=== PATIENT | male | born 1955 | race Caucasian/White ===

== ENCOUNTER → 2017-05-10 | Outpatient (CLI) | payer BC ==
[~2017-05-10] MED LIST: ASPI81TA28 PO; CHOL2000 PO; CLOB-65 TOP; FLV1 PO; KETO2CRE14 TOP; LEVO-14 PO; MCRHC/8025 PO; METF1000 PO; METH2.5T PO; MULT-188 PO; MULT-506 PO; PRLSR20 PO; ROSU20TA PO; VERA120T65 PO
== END | disposition home or self-care (01) ==
LOC: C.RDSM 10:23
PROVIDERS: ATTEND Physical Medicine & Rehabilitation Sports Medicine
DX: Z96.642 Presence of left artificial hip joint (principal)

== ENCOUNTER 2021-02-05 05:17 | Observation (INO) ==
--- NOTE | 2021-01-17 10:56 | PAT Medication Instructions ---
Medication Instructions Date of Service January 17, 2021 Home Medications acetaminophen [Tylenol Extra Strength] 1,000 mg PO BID aspirin [Aspir-81] 81 mg PO QAM bupropion HCl [Wellbutrin SR] 300 mg PO QAM cholecalciferol (vitamin D3) [Vitamin D3] 50 mcg PO QPM coQ10 (ubiquinol) 200 mg PO QAM cyclobenzaprine [Flexeril] 10 mg PO TID PRN folic acid 0.8 mg PO QAM qyrvuzov-pkgsb-ssnlz-CF borate [[facility]] 1 tab PO HS insulin glargine-lixisenatide [Soliqua 100/33] 38 unit SUBCUT QPM levocetirizine [Xyzal] 5 mg PO HS metformin 1,000 mg PO BID methotrexate sodium 2.5 mg PO USEASDIRECTD naproxen 500 mg PO BID omega 9-qye-mjk-fish oil [Fish Oil] 1 cap PO HS rosuvastatin [Crestor] 20 mg PO HS telmisartan-hydrochlorothiazid 1 tab PO QAM verapamil 120 mg PO HS ASK your surgeon for instructions naproxen 500 mg PO BID ASK your prescriber and surgeon methotrexate sodium 2.5 mg PO USEASDIRECTD STOP taking 2 weeks before surgery (or as soon as possible if surgery is within 2 weeks) coQ10 (ubiquinol) 200 mg PO QAM ktlziqsh-pegld-cpeyf-CF borate [[facility]] 1 tab PO HS omega 9-pcn-upx-fish oil [Fish Oil] 1 cap PO HS DO NOT take the morning of surgery cyclobenzaprine [Flexeril] 10 mg PO TID PRN folic acid 0.8 mg PO QAM metformin 1,000 mg PO BID telmisartan-hydrochlorothiazid 1 tab PO QAM Take morning of surgery With a small sip of water, OTHERWISE NOTHING TO EAT OR DRINK AFTER MIDNIGHT: acetaminophen [Tylenol Extra Strength] 1,000 mg PO BID (okay to take up to 4 hours prior to surgery if needed) aspirin [Aspir-81] 81 mg PO QAM (continue as normal unless told otherwise by surgeon) bupropion HCl [Wellbutrin SR] 300 mg PO QAM Take evening before surgery acetaminophen [Tylenol Extra Strength] 1,000 mg PO BID cholecalciferol (vitamin D3) [Vitamin D3] 50 mcg PO QPM cyclobenzaprine [Flexeril] 10 mg PO TID PRN (if needed) insulin glargine-lixisenatide [Soliqua 100/33] 38 unit SUBCUT QPM levocetirizine [Xyzal] 5 mg PO HS metformin 1,000 mg PO BID rosuvastatin [Crestor] 20 mg PO HS verapamil 120 mg PO HS Other Notes If you have any questions please call us at [phone] or [phone] or [phone] or [phone]
--- NOTE | 2021-01-22 12:25 | Anesthesiology Consultation ---
Date of Service January 22, 2021 Assessment & Plan (1) Encounter for pre-operative examination: - COVID screening: Per assessment on 01/22: Travel screen negative, no known COVID-19 positive contacts or current COVID-19 related symptoms. Patient vaccinated. Surgeon arranging preop COVID testing. Awaiting results. - Check BSG AM DOS - Possible difficult intubation (d/t anatomy) - S/P Left KI (06/19/15): SAB at L3/L4 (x1 attempt) at [facility] (wt at time 102kg) Chart Review Chart Review: Acceptable Risk for Surgery (pending surgeon-ordered PCP clearance) and Patient seen in Pre Admission Testing Teaching & Discussion Pre-Anesthesia Teaching/Discussion Notes: Instructed NPO after midnight before surgery,except medications with 15 cc of water. Medication instructions provided according to the PAT guidelines. History Surgery Operation Date: 02/05/21 09:20 Proposed Procedures p Right Total Hip Arthroplasty - Shane Tinajero MD Height/Weight Height: 5 ft 1 in Weight: 94.7 kg Allergies Allergy/AdvReac Type Severity Reaction Status Date / Time atorvastatin AdvReac Mild Myalgias Verified 01/22/21 12:23 simvastatin AdvReac Mild Myalgias Verified 01/22/21 12:23 Dust AdvReac Mild Congestion, Uncoded 01/22/21 12:23 itchy eyes Medications Home Medications Medication Instructions Recorded Confirmed Last Taken acetaminophen [Tylenol Extra 1,000 mg PO BID 01/16/21 01/16/21 Unknown Strength] aspirin [Aspir-81] 81 mg PO QAM 01/16/21 01/16/21 Unknown bupropion HCl [Wellbutrin SR] 300 mg PO QAM 01/16/21 01/16/21 Unknown cholecalciferol (vitamin D3) 50 mcg PO QPM 01/16/21 01/16/21 Unknown [Vitamin D3] coQ10 (ubiquinol) 200 mg PO QAM 01/16/21 01/16/21 Unknown cyclobenzaprine [Flexeril] 10 mg PO TID PRN 01/16/21 01/16/21 Unknown folic acid 0.8 mg PO QAM 01/16/21 01/16/21 Unknown theksaru-udebz-xtfou-CF borate 1 tab PO HS 01/16/21 01/16/21 Unknown [[facility]] insulin glargine-lixisenatide 38 unit SUBCUT QPM 01/16/21 01/16/21 Unknown [Soliqua 100/33] levocetirizine [Xyzal] 5 mg PO HS 01/16/21 01/16/21 Unknown metformin 1,000 mg PO BID 01/16/21 01/16/21 Unknown methotrexate sodium 2.5 mg PO USEASDIRECTD 01/16/21 01/16/21 Unknown naproxen 500 mg PO BID 01/16/21 01/16/21 Unknown omega 9-ddd-gfr-fish oil [Fish Oil] 1 cap PO HS 01/16/21 01/16/21 Unknown rosuvastatin [Crestor] 20 mg PO HS 01/16/21 01/16/21 Unknown telmisartan-hydrochlorothiazid 1 tab PO QAM 01/16/21 01/16/21 Unknown verapamil 120 mg PO HS 01/16/21 01/16/21 Unknown Past Medical History Medical History Depression Diabetes mellitus, type 2 IDDM Hypertension Low testosterone Obesity Osteoarthritis Psoriasis Rheumatoid arthritis Hands, shoulder, legs Sleep apnea CPAP Exercise / Class Metabolic Activity III < 4 Walking/Shop/Light housework (walker/cane) Past Family History Family History Other Cancer Hypertension No family history of adverse response to anesthesia Obesity Osteoarthritis Past Surgical History Surgical History History of cataract surgery R/L History of total left hip arthroplasty Left KI (06/19/15): SAB at L3/L4 (x1 attempt) at [facility] (wt at time 102kg) Hx of LASIK [place] teeth removed Past Anesthesia History No Hx of Anesthesia Complications and No Family Hx of Anesthesia Complications History of PONV No Hx of PONV and No Hx of Motion Sickness Social History Smoking Status: Never smoker Do You Dip or Chew Tobacco: No Hx Alcohol Use: No Hx Substance Use: No substance use type: does not use Review of Systems Patient denies chest pain, shortness of breath, reflux, cough, wheezing, palpitations. Physical Exam Vital Signs VITALS BP 162/76 P 82 TEMP 98.2 SP02 98%RA RESP 18 PHYSICAL Full cervical extension range of motion. No cervicalgia with cervical extension limitations. Full TMJ range of motion. TMD 3.5 finger breaths Mallampati Score 4 (small oral opening) Dentition: intact, implants (sides) Lungs: clear throughout to auscultation Cardiac: regular rate and rhythm, no murmurs noted Spine: normal Carotid arteries: negative bruit Extremities: no edema Short, thick neck Lab Results Anesthesia Preop Results Results Anesthesia Widget: WBC 10.91 K/uL (4.8-10.8) H 01/22/21 Hgb 12.4 g/dL (14.0-18.0) L 01/22/21 Hct 37.4 % (42-52) L 01/22/21 Plt 369 K/uL (130-400) 01/22/21 Na 136 mmol/L (136-145) 01/22/21 K 4.4 mmol/L (3.5-5.1) 01/22/21 Cl 103 mmol/L (98-107) 01/22/21 CO2 28 mmol/L (21-32) 01/22/21 BUN 22 mg/dl (7-18) H 01/22/21 Creat 1.14 mg/dl (0.6-1.4) 01/22/21 Glucose Level 93 mg/dl (70-99) 01/22/21 PT 10.3 Seconds (9.0-12.0) 01/22/21 PTT 25.9 Seconds (21.0-31.0) 01/22/21 INR 1.0 (0.9-1.1) 01/22/21 HA1c 7.1 % (4.5-5.6) H 01/22/21 Blood Type O Positive 01/22/21 Antibody Screen NEGATIVE 01/22/21 Lab Comments: Mildly elevated WBC > report to be forwarded to PCP for continuity of care Testing Electrocardiogram Date: 01/22/21 NSR at 83bpm. Chest X-Ray Date: 01/22/21 Findings: + NAD
[2021-02-05] MEDS ORDERED: ROPIVACAINE 0.5% HCL/PF 150 MG, BUPIVACAINE 0.75% MPF 20 ML, EPINEPHrine 0.15 MG, Ketor... INFIL SCH (06:00)
[2021-02-05] MEDS ORDERED: LR 60ML/HR IV SCH (06:00)
[2021-02-05] MEDS ORDERED: LR 500ML BOLUS, THEN 15ML/HR IV SCH (06:00)
[2021-02-05] MEDS ORDERED: ceFAZolin 2000MG 2,000 MG/15 ML SYR IV SCH (06:00)
[2021-02-05] MEDS ORDERED: TRANEXAMIC ACID 1,000 MG **IV Pre-op IV SCH (06:00)
[2021-02-05] MEDS ORDERED: BUPIVACAINE 0.5 % 5 MG/1 ML PF 10ML VIAL ONE (06:14)
--- NOTE | 2021-02-05 06:32 | History & Physical Bridge Note ---
Date of Service February 05, 2021 History & Physical Bridge Note I have examined the patient, reviewed the History & Physical and in the interval since the performance of the History & Physical I have noted the following changes of clinical significance:consent obtained/site verified/covid screen negative. no changes noted
[2021-02-05] MEDS ORDERED: ORTHO JOINT ANESTHETIC ONE (06:35)
[2021-02-05] MEDS ORDERED: fentaNYL citrate 100 MCG/2 ML VIAL ONE (06:38)
[2021-02-05] MEDS ORDERED: MIDAZOLAM HCL 1 MG/ML 2ML VIAL ONE (06:39)
[2021-02-05] MEDS ORDERED: fentaNYL citrate 100 MCG/2 ML VIAL IV PRN (06:57)
[2021-02-05] MEDS ORDERED: ePHEDrine sulfate 50 MG/ML AMP IV PRN (06:57)
[2021-02-05] MEDS ORDERED: ATROPINE SULFATE 0.1 MG/ML 10ML SYR IV PRN (06:57)
[2021-02-05] MEDS ORDERED: ePHEDrine sulfate 50 MG/ML AMP ONE ×3 (07:34→09:54)
[2021-02-05] MEDS ORDERED: PROPOFOL IV EMULSION 10 MG/ML 20 ML VIAL IV ONE ×2 (07:34→08:11)
[2021-02-05] MEDS ORDERED: ePHEDrine sulfate 50 MG/ML SYR ONE (07:34)
--- NOTE | 2021-02-05 08:33 | Post Operative Brief Note ---
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
--- NOTE | 2021-02-05 08:45 | Operative Report ---
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 He had tried conservative care measures without improvement. He has a history of previous left total hip arthroplasty and has done well with it. He elects to proceed with the same on the right. Preoperative imaging was obtained. Description of Procedure The patient was administered a spinal anesthetic and then taken to the operating room where he was given sedation. He was prepped and draped in the usual sterile fashion. Please see Dr. Tinajero's operative report for specifics of the procedure. I was present for the entire case from initial patient positioning through final wound closure. Assistance was provided in tissue retraction, hemostasis, trial implant placement, final implant placement, and final wound closure. Patient was taken to the recovery room in satisfactory condition. I attest to the content of the Intraoperative Record and any orders documented therein. Any exceptions are noted below.
[2021-02-05] MEDS ORDERED: VANCOMYCIN HCL 1,500 MG in SODIUM CHLORIDE 0.9% 500 ML IV ONE (09:15)
--- NOTE | 2021-02-05 09:16 | XRay Report ---
XR pelvis 1-2V routine CLINICAL HISTORY: Postop right total hip replacement COMPARISON: 01/10/2021 DISCUSSION: A total left hip arthroplasty is again visualized. There is now evidence for a total righ t hip arthroplasty. The femoral and acetabular components appear well seated. There is no dislocation . There is gas within soft tissues consistent with recent surgery. There are overlying skin geronimo. IMPRESSION: Postsurgical changes of a total right hip arthroplasty. ACT 112: Negative or not required by law. Electronically signed by: Timo Talavera M.D. 02/05/2021 9:15 AM
--- NOTE | 2021-02-05 09:43 | Progress Notes ---
DATE OF SERVICE: 02/05/2021 Status post right total hip replacement. The patient is resting comfortably in PACU. Denies any [address] pain, shortness of breath, fever, chills, nausea, vomiting or headache. Spinal block is still in place. Wound dressing clean, dry and intact. Leg lengths are equal. SCDs applied. X-ray is pendin g. ASSESSMENT: Overall doing well. Continue with postoperative care pathway. X-ray is pending. Contin ue to mobilize. Job ID: [id number]
[2021-02-05] MEDS ORDERED: PHENYLEPHRINE HCL 10 MG/ML VIAL ONE (09:49)
--- NOTE | 2021-02-05 10:02 | Operative Report (OR) ---
DATE OF PROCEDURE: 02/05/2021 SURGEON: Shane Tinajero MD. SILO WORKER: Samuel Mcclendon PA-C. No resident or fellow available. 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 OPERATION PERFORMED: Noncemented right total hip replacement. PERIOPERATIVE SITUATION: Medically cleared male with intractable hip pain, has superior migration, marked degeneration and destruction of his femoral head. This will be sent for pathology. A similar process on the opposite side, idiopathic AVN. Options were discussed in detail. Wished to proceed with surgical treatment like he had on the other side. Understands the risks and consequences, particularly nerve injury with lengthening of his leg. DESCRIPTION OF PROCEDURE: After the patient was appropriately identified, site verified, consent verified, antibiotics were confirmed as being given, the right lower extremity was prepped and draped in the usual routine fashion with the patient in the left lateral decubitus position. A posterior approach to the hip was made. Sharp dissection carried through the skin, blunt dissection down to the fascia. IT band and gluteus reuben fascia were then split and a Charnley retractor was placed. Care was taken to protect the sciatic nerve. The short external rotators were identified and released. The capsule was T'ed and the hip was then dislocated. There was marked deformity, superior migration of the femur. Once this was resected, retractors were placed. Capsule released further, lot of debris removed from the acetabulum. Serial reaming carried up to 52 and a 52 cup impacted into appropriate anteversion and inclination with excellent fixation. An additional screw was placed 6.5 x 30 with excellent purchase. A trial liner was then seated. Minor osteophytes resected. Femur was then flexed and internally rotated and prepared with a box car washer, canal finder, lateralizing rasp and serial broaching up to a size 2. Size 2 was then impacted into position and a 1.5 or 5.0 head was appropriate. Hip was very stable. The trial elements were then removed. All the wound was then irrigated. The hole eliminator seated, the permanent liner seated, the permanent head and stem seated, and then the +5 head seated and then the hip was reduced. It was stable in all planes. It was then copiously irrigated and then closed using #2 Vicryl, 2-0 Vicryl and stainless steel clips. Orthomix was injected in the superficial wound. EBL was roughly 150 mL. Crystalloid per Anesthesia. SUMMARY OF IMPLANTS: Size 52 acetabular shell sector cup hole eliminator, 30 x 6.5 screws, 36 x 52 neutral liner, 2 high-offset Tri-Lock and 36+1.5 ceramic head. The patient's leg lengths were equal. Hip was stable. Job ID: [id number] [facility]
--- NOTE | 2021-02-05 10:03 | Discharge Summary (DS) ---
DATE OF POTENTIAL DISCHARGE: 02/06/2021. CHIEF COMPLAINT: Right hip pain. Elective right total hip replacement for severe AVN collapse and D MALINI. Hospital course to date has been uneventful. HISTORY OF PRESENT ILLNESS: Severe pain, marked destruction of his hip. PAST MEDICAL HISTORY: Remarkable for anxiety, diabetes, hypertension, low testosterone, obesity, ost eoarthritis, psoriasis, rheumatoid arthritis, sleep apnea, CPAP use, cataract surgery, left hip repla cement, wisdom teeth. FAMILY HISTORY: Remarkable for cancer, hypertension, obesity, osteoarthritis. SOCIAL HISTORY: He is , spouse lives with him. He is employed. He does not smoke or drink. REVIEW OF SYSTEMS: Noncontributory. ASSESSMENT: Doing well status post right total hip replacement. PLAN: For discharge tomorrow. Case management to see ABBEY, prepare for discharge. Job ID: [id number]
--- NOTE | 2021-02-05 10:39 | Anesthesiology Progress Note ---
Date of Service February 05, 2021 Anesthesia Post Procedure Vital Signs Vital Signs: Temp Pulse Pulse Resp BP Pulse Ox 02/05/21 10:15 75 18 134/58 L 97 02/05/21 10:00 36.2 C L 78 18 137/60 96 02/05/21 09:50 76 16 117/67 97 02/05/21 09:40 75 18 120/65 98 02/05/21 09:30 72 12 127/57 L 99 02/05/21 09:20 76 12 129/60 98 02/05/21 09:10 71 14 120/61 100 02/05/21 09:00 79 18 116/58 L 100 02/05/21 08:50 89 14 115/61 100 02/05/21 08:42 36.2 C L 77 16 113/54 L 99 02/05/21 05:48 36.9 C 88 20 185/69 H 98 Pain Intensity Right Hip: Pain Intensity: 0 Transfer of Care Handoff Completed per policy Notes Mental Status: alert / awake / arousable and participated in evaluation Patient Amnestic to Procedure: Yes Nausea / Vomiting: adequately controlled Pain: adequately controlled Airway Patency, RR, SpO2: stable & adequate BP & HR: stable & adequate Hydration State: stable & adequate Neuraxial Anesthesia: was administered and sensory block is resolving Anesthetic Complications: no major complications apparent
[2021-02-05] MEDS ORDERED: TAMSULOSIN HCL 0.4 MG CAP PO PRN (10:51)
[2021-02-05] MEDS ORDERED: MAGNESIUM HYDROXIDE SUSP 30 ML UDC PO PRN (10:51)
[2021-02-05] MEDS ORDERED: HYDROmorphone INJ 0.5 MG/0.5 ML SYR IV PRN (10:51)
[2021-02-05] MEDS ORDERED: ALUMINUM/MAGNESIUM SUSP 30 ML UDC PO PRN (10:51)
[2021-02-05] MEDS ORDERED: diphenhydrAMINE 50 MG/ML VIAL IV PRN (10:51)
[2021-02-05] MEDS ORDERED: SODIUM CHLORIDE 0.9% 1000ML 1,000 ML IV SCH (10:51)
[2021-02-05] MEDS ORDERED: bisacodyL 10 MG SUPP PR PRN (10:51)
[2021-02-05] MEDS ORDERED: TELMISARTAN HYDROCHLOROTHIAZID PO SCH (10:51)
[2021-02-05] MEDS ORDERED: NALOXONE HCL 0.4 MG/1 ML VIAL/CARP IV PRN (10:51)
[2021-02-05] MEDS ORDERED: METOCLOPRAMIDE HCL INJ 5 MG/ML 2 ML VIAL IV PRN (10:51)
[2021-02-05] MEDS ORDERED: CYCLOBENZAPRINE HCL 10 MG TAB PO PRN (11:12)
[2021-02-05] MEDS ORDERED: hydroCHLOROthiazide 25 MG TAB PO ONE (11:30)
[2021-02-05] MEDS ORDERED: TELMISARTAN 40 MG TAB PO ONE (11:30)
[2021-02-05] MEDS: buPROPion SR 150 MG TABCR PO SCH (12:20)
[2021-02-05] MEDS: ASPIRIN 81 MG ECTAB PO SCH (12:20)
[2021-02-05] MEDS: DOCUSATE SODIUM 100 MG CAP PO SCH ×2 (12:20→21:26)
[2021-02-05] MEDS: ORTHO WARFARIN NOMOGRAM SCH (12:41)
[2021-02-05] MEDS: INSULIN ASPART 100 UNITS/ML 3 ML PEN SC SCH ×3 (12:44→21:29)
[2021-02-05] MEDS: ceFAZolin 2000MG 2,000 MG/15 ML SYR IV SCH ×2 (12:45→21:28)
[2021-02-05] MEDS: ACETAMINOPHEN 500 MG TAB PO SCH ×2 (12:45→21:36)
[2021-02-05] MEDS: oxyCODONE HCL IR 5 MG TAB (IMMEDIATE RELEASE) PO PRN ×2 (14:58→21:27)
[2021-02-05] MEDS ORDERED: TRANEXAMIC ACID / 0.7% NACL 1,000 MG/100 ML BAG IV SCH (15:00)
[2021-02-05] MEDS: ASCORBIC ACID 500 MG TAB PO SCH (15:28)
[2021-02-05] MEDS: FERROUS GLUCONATE 324 MG TAB PO SCH (15:29)
[2021-02-05] MEDS ORDERED: WARFARIN SOD 5 MG TAB PO SCH (16:00)
[2021-02-05] MEDS: VERAPAMIL HCL 120 MG TABCR PO SCH (16:48)
[2021-02-05] MEDS: ROSUVASTATIN CALCIUM 20 MG TAB PO SCH (21:26)
[2021-02-05] MEDS: CETIRIZINE HCL 10 MG TABLET PO SCH (21:26)
[2021-02-05] MEDS: SENNA 8.6 MG TAB PO SCH (21:26)
[2021-02-06] MEDS: ONDANSETRON INJ 2 MG/ML 2 ML VIAL IV PRN ×2 (05:25→11:35)
[2021-02-06 06:36] LABS: Basophils # (auto) 0.01 K/uL (0-0.2); Basophils % (auto) 0.1 %; Eosinophils # (auto) 0.01 K/uL (0-0.5); Eosinophils % (auto) 0.1 %; Hematocrit (blood only) 31.8 % (42-52); Hemoglobin 10.9 g/dL (14.0-18.0); Immature Granulocytes # (auto) 0.05 K/uL (0.00-0.02); Immature Granulocytes % (auto) 0.3 %; Lymphocytes # (auto) 0.82 K/uL (1.2-3.4); Lymphocytes % (auto) 5.7 %; Mean Corpuscular Hemoglobin 31.6 pg (25-34); Mean Corpuscular Hgb Conc 34.3 g/dL (32-36); Mean Corpuscular Volume 92.2 fL (80-100); Mean Platelet Volume 10.5 fL (7.4-10.4); Monocytes # (auto) 1.21 K/uL (0.11-0.59); Monocytes % (auto) 8.4 %; Neutrophils # (auto) 12.27 K/uL (1.4-6.5); Neutrophils % (auto) 85.4 %; Platelet Count 302 K/uL (130-400); RDW Coefficient of Variation 13.1 % (11.5-14.5); RDW Standard Deviation 43.4 fL (36.4-46.3); Red Blood Count 3.45 M/uL (4.7-6.1); White Blood Count 14.37 K/uL (4.8-10.8)
[2021-02-06 07:10] LABS: BUN Creatinine Ratio 16.8 (10-20); Calcium 8.9 mg/dl (8.5-10.1); Creatinine Clr Calc Pharmacy 73.8 ml/min; Est GFR (African American) 94.1 ml/min; Est GFR (Non-African American) 81.2 ml/min; INR 1.1 (0.9-1.1); Potassium 4.3 mmol/L (3.5-5.1); Prothrombin Time 10.9 Seconds (9.0-12.0)
--- NOTE | 2021-02-06 07:22 | Progress Notes ---
DATE: 02/05/2021. SUBJECTIVE: Postop check status post right total hip replacement. The patient had a little episode of vasovagal reaction. He is feeling better now. He denies any [address] pain, shortness of breath, fever, chills, nausea, vomiting, or headache. OBJECTIVE: Vital signs are stable. He is afebrile. Physical exam reveals neurologic findings intact. Has no abdominal pain, has no calf pain. Has good hip rotation. Femoral sciatic nerve working well bilaterally. LABORATORY DATA: Hematocrit stable at 31.8. Electrolytes are pending. Glucose is in the 180 range. INR is pending. ASSESSMENT AND PLAN: Doing reasonably well. Glucoses are not out of control. His hematocrit is sta ble. His main issue was some syncope/vasovagal reaction getting out of the bathroom. This is likely based on some autonomic dysfunction based on his diabetes. Needs to be careful with pain medication and moving quickly. He states he was sitting up in bed for about 3-4 hours yesterday, feels like th at may have contributed to it. At this point in time, we will see how he does with PT, OT before henrry ing him be discharged. A conditional discharge order has been written. Job ID: [id number]
[2021-02-06] MEDS: ACETAMINOPHEN 500 MG TAB PO SCH ×3 (07:52→21:35)
[2021-02-06] MEDS: DOCUSATE SODIUM 100 MG CAP PO SCH ×2 (07:53→21:20)
[2021-02-06] MEDS: ASCORBIC ACID 500 MG TAB PO SCH ×2 (07:53→16:34)
[2021-02-06] MEDS: buPROPion SR 150 MG TABCR PO SCH (07:53)
[2021-02-06] MEDS: FOLIC ACID 400 MCG TAB PO SCH (07:53)
[2021-02-06] MEDS: ASPIRIN 81 MG ECTAB PO SCH (07:54)
[2021-02-06] MEDS: TELMISARTAN 40 MG TAB PO SCH (07:54)
[2021-02-06] MEDS: hydroCHLOROthiazide 25 MG TAB PO SCH (07:54)
[2021-02-06] MEDS: FERROUS GLUCONATE 324 MG TAB PO SCH ×2 (07:54→16:35)
[2021-02-06] MEDS: MULTIVITAMIN TAB PO SCH (07:54)
[2021-02-06] MEDS: INSULIN ASPART 100 UNITS/ML 3 ML PEN SC SCH ×4 (08:54→21:16)
[2021-02-06] MEDS: ORTHO WARFARIN NOMOGRAM SCH (15:12)
[2021-02-06] MEDS ORDERED: WARFARIN SOD 5 MG TAB PO ONE (16:00)
[2021-02-06] MEDS ORDERED: KETOROLAC TROMETHAMINE 15 MG/ML VIAL IV ONE (16:11)
--- NOTE | 2021-02-06 16:31 | Progress Notes ---
SUBJECTIVE: Patient seen this afternoon. Still a little bit unsteady and a sense of feeling uncomfortable about going home. Denies any chest pain, shortness of breath, fever, chills, nausea, vomiting or headache. He has some groin pain which is not unexpected based on his collapse of his femoral head and the osteophytes that needed to be resected. He is a bit hypertensive. OBJECTIVE: VITAL SIGNS: He is afebrile. His O2 sat is 99 on room air. He states he feels better this afternoon. CHEST: Clear. ABDOMEN: Soft, nontender. Pulses regular, but slightly tachycardic. Neurovascular check femoral sciatic nerve is normal. Wound dressing clean, dry and intact. Hips are located. ASSESSMENT: Not quite ready to go home yet. PLAN: We will keep him over night. We will cancel his discharge order. We will give him a little bit of atenolol 25 mg p.o. x1 now to help assist his tachycardia and his hypertension. We will give him verapamil later on. We will also give him a dose of IV Toradol 15 mg x1 verified with the pharmacist. We will potentially discharge tomorrow morning after PT/OT. Job ID: [id number] [facility] INSANEKimberly
[2021-02-06] MEDS: ATENOLOL 25 MG TABLET PO SCH (17:03)
[2021-02-06] MEDS: oxyCODONE HCL IR 5 MG TAB (IMMEDIATE RELEASE) PO PRN (18:34)
[2021-02-06] MEDS: CETIRIZINE HCL 10 MG TABLET PO SCH (21:17)
[2021-02-06] MEDS: ROSUVASTATIN CALCIUM 20 MG TAB PO SCH (21:35)
[2021-02-06] MEDS: SENNA 8.6 MG TAB PO SCH (21:35)
[2021-02-06] MEDS: VERAPAMIL HCL 120 MG TABCR PO SCH (21:35)
[2021-02-07] MEDS: ACETAMINOPHEN 500 MG TAB PO SCH (05:30)
[2021-02-07] MEDS: oxyCODONE HCL IR 5 MG TAB (IMMEDIATE RELEASE) PO PRN (05:38)
[2021-02-07] MEDS ORDERED: AZITHROMYCIN 250 MG TAB PO ONE (06:19)
--- NOTE | 2021-02-07 07:04 | Progress Notes ---
SUBJECTIVE: Postop day #2 status post right total hip replacement on Thang Michel. He is sitting up in his chair. He feels much better. He feels like he can be discharged. His blood pressure is much better controlled, the atenolol really helped. I have asked him to discuss that with his primary care provider. His pulse is in the 70s. He denies chest pain, shortness of breath, fever, chills, nausea, vomiting or headache. OBJECTIVE: Vital signs are stable. His pulse is regular. His abdomen is soft, nontender. His calves are nontender. Wound dressing clean, dry and intact. PT/INR is pending this morning. ASSESSMENT AND PLAN: Discharged to home today. Due to methotrexate, we will place him on azithromycin 500 mg daily for 5 days. Started that this morning. Coumadin dose per nomogram today. Discharge after PT, OT today. Follow up in 2 weeks. Job ID: [id number] [facility]
[2021-02-07] MEDS: ASCORBIC ACID 500 MG TAB PO SCH (07:32)
[2021-02-07] MEDS: MULTIVITAMIN TAB PO SCH (07:32)
[2021-02-07] MEDS: FERROUS GLUCONATE 324 MG TAB PO SCH (07:32)
[2021-02-07] MEDS: TELMISARTAN 40 MG TAB PO SCH (07:32)
[2021-02-07] MEDS: ASPIRIN 81 MG ECTAB PO SCH (07:33)
[2021-02-07] MEDS: buPROPion SR 150 MG TABCR PO SCH (07:33)
[2021-02-07] MEDS: ATENOLOL 25 MG TABLET PO SCH (07:33)
[2021-02-07] MEDS: FOLIC ACID 400 MCG TAB PO SCH (07:34)
[2021-02-07] MEDS: hydroCHLOROthiazide 25 MG TAB PO SCH (07:34)
[2021-02-07] MEDS: DOCUSATE SODIUM 100 MG CAP PO SCH (07:34)
[2021-02-07] MEDS: INSULIN ASPART 100 UNITS/ML 3 ML PEN SC SCH (07:51)
[2021-02-07] MEDS ORDERED: metHOTREXate sodium 2.5 MG TAB PO SCH (09:00)
--- NOTE | 2021-02-07 09:06 | Electrocardiogram Report ---
Test Reason : Blood Pressure : / mmHG Vent. Rate : 098 BPM Atrial Rate : 098 BPM P-R Int : 160 ms QRS Dur : 090 ms QT Int : 328 ms P-R-T Axes : 075 044 064 degrees QTc Int : 418 ms Normal sinus rhythm Normal ECG When compared with ECG of 22-JAN-2021 12:54, No significant change was found Confirmed by Konstantin Harvey ([id number]) on 02/07/2021 9:06:11 AM Referred By: Shane Tinajero Confirmed By:Konstantin Harvey
--- NOTE | 2021-02-07 09:59 | Discharge Summary (DS) ---
ADDENDUM DATE OF ADMISSION: 02/05/2021 DATE OF DISCHARGE: 02/07/2021 The patient will be discharged today, 02/07/2021. His blood pressure is better controlled. He feels better. His pain is well managed. He is voiding, eating and drinking. He has some autonomic dysfu nction likely based on his diabetes, which would give him a little bit of vasovagal reaction with act ivity, but he is doing much better now. At this point in time, we will discharge him home today. I added azithromycin 500 mg daily for 5 days based on his methotrexate use. This will also protect not only his surgical wound but also his other joint replacements. He will follow up with us in 2 weeks . Discharge to home today after PT/OT. The Coumadin dose per nomogram. Job ID: [id number]
[2021-02-07 10:02] LABS: INR 1.2 (0.9-1.1); Prothrombin Time 12.3 Seconds (9.0-12.0)
[2021-02-07] MEDS: ORTHO WARFARIN NOMOGRAM SCH (10:17)
[2021-02-07] MEDS ORDERED: WARFARIN SOD 5 MG TAB PO SCH (12:00)
== END 2021-02-07 13:13 | disposition home health service (06) ==
LOC: 3E 05:17 → ASU 05:17